=== PATIENT | male | born 1980 | race African-American/Black ===

== ENCOUNTER 2016-12-13 05:49 | Emergency (ER) | payer OTHER ==
[~2016-12-13 05:49] MED LIST: PEN-VEE K PO
[2016-12-13 06:07] LABS: URINE SOURCE CLEAN CATCH
[2016-12-13 06:14] LABS: URINE APPEARANCE CLEAR; URINE BILIRUBIN NEG (NEG); URINE BLOOD NEG (NEG); URINE COLOR YELLOW; URINE GLUCOSE NEG (NEG); URINE KETONE TRACE (NEG); URINE LEUKOCYTE ESTERASE 1+ (NEG); URINE NITRATE NEG (NEG); URINE PH 5.5 (5-8); URINE PROTEIN NEG (NEG); URINE SPECIFIC GRAVITY 1.031 (1.003-1.035)
[2016-12-13 06:16] LABS: CULTURE INDICATED? YES; URBCS1 AUWI 0-2 /[HPF] (0-2); URINE BACTERIA AUWI NEG (NEGATIVE); URINE SQUAMOUS EPITHELIAL CELL NONE SEEN /[HPF]; UWBCS1 AUWI 25-50 (0-5)
[2016-12-14 16:25] LABS: CHLAMYDIA TRACH Detected (Not Detected); N GONOR Not Detected (Not Detected)
== END 2016-12-13 06:50 | disposition home or self-care (01) ==
LOC: CED 05:49
PROVIDERS: Nurse Practitioner
DX: N34.2 Other urethritis (principal); K21.9 Gastro-esophageal reflux disease without esophagitis; F17.210 Nicotine dependence, cigarettes, uncomplicated
CPT/HCPCS: 81003; 87086; 87491; 87591; 96374; 99283; J0696

== ENCOUNTER 2017-02-17 14:34 | Emergency (ER) | payer OTHER ==
--- NOTE | ~2017-02-17 | US113 ---
[facility] A Service of [facility] RADIOLOGY TEXT RESULTS PATIENT: GILDA HANSEN LOCATION: [facility] : 82 UNIT #: [id number] AGE: [address]: Promise Milan APRN SEX: M ORDER DR: [id number] [place], [place] [address] [id number] MR#: [id number] Acc #: [id number] NAME: GILDA HANSEN : 1980 SEX: M STUDY DATE/TIME: 02/17/2017 15:31 UNIT: [facility] ROOM: STUDY DESCRIPTION: US Scrotal Duplex Complete Attending Physician: Promise Milan A.P.R.N. Ordering Physician: Abraham Not Listed Primary Care Physician: No Primary Care Physician MEDICAL IMAGING REPORT This report is preliminary unless electronic signature is present EXAM Scrotal ultrasound and Doppler 02/17/2017. HISTORY Bilateral testicular swelling and pain for 1 month. PROCEDURE Slaughter-scale imaging, color-Doppler flow imaging, and Doppler waveform analysis. FINDINGS On the right, the testicle was normal on slaughter-scale. No mass is seen, and there is normal overall vascularity. Normal arterial Doppler waveforms are seen. On the left, the testicle was normal on slaughter-scale. Vascularity is overall normal, and normal arterial Doppler waveforms are demonstrated. No mass is seen. The epididymides are normal bilaterally. IMPRESSION 1. Normal bilateral testicular ultrasound and Doppler, normal blood flow and normal arterial Doppler waveforms bilaterally. No evidence of torsion. 2. No testicular mass or other abnormality. Dictated by... Ramesh Fairbanks M.D. THIS IS AN ELECTRONICALLY VERIFIED REPORT Ramesh Fairbanks M.D. at 02/18/2017 4:10 PM [facility] A Service [facility] RADIOLOGY TEXT RESULTS PATIENT: GILDA HANSEN LOCATION: [place] : 82 UNIT #: [id number] AGE: [address]: Promise Milan APRN SEX: M ORDER DR: Cyndy TD: 02/17/2017 18:23 JOB #: [id number] MEDICAL IMAGING REPORT Page 1 of 1 COPY
[2017-02-17 15:26] LABS: URINE SOURCE CLEAN CATCH
[2017-02-17 15:33] LABS: URINE APPEARANCE CLOUDY; URINE BILIRUBIN NEG (NEG); URINE BLOOD NEG (NEG); URINE COLOR DK YELLOW; URINE GLUCOSE NEG (NEG); URINE KETONE TRACE (NEG); URINE LEUKOCYTE ESTERASE 2+ (NEG); URINE NITRATE NEG (NEG); URINE PH 5.5 (5-8); URINE PROTEIN 1+ (NEG); URINE SPECIFIC GRAVITY 1.037 (1.003-1.035)
[2017-02-17 15:35] LABS: CULTURE INDICATED? YES; URINE BACTERIA AUWI NEG (NEGATIVE); URINE SQUAMOUS EPITHELIAL CELL NONE SEEN /[HPF]; UWBCS1 AUWI 200-300 (0-5)
[2017-02-20 08:57] LABS: CHLAMYDIA TRACH Detected (Not Detected); N GONOR Detected (Not Detected)
== END 2017-02-17 17:13 | disposition home or self-care (01) ==
LOC: CFTX 14:34 → CED 14:34 → CFTX 15:09
PROVIDERS: Nurse Practitioner
DX: N34.2 Other urethritis (principal); F17.200 Nicotine dependence, unspecified, uncomplicated
CPT/HCPCS: 81003; 87086; 87491; 87591; 93975; 96372; 99284; J0696